=== PATIENT | female | born 1985 | race Caucasian/White ===

== ENCOUNTER 2017-03-04 12:05 | Emergency (ER) | payer OTHER ==
[~2017-03-04] VITALS: Ht 175.3 cm; Wt 112.6 kg
[~2017-03-04 12:05] MED LIST: FLEXERIL10 MG PO; MOTRIN800 MG PO
[2017-03-04 12:07] VITALS: BP 122/84
== END 2017-03-04 13:47 | disposition home or self-care (01) ==
LOC: EME 12:05
DX: T19.2XXA Foreign body in vulva and vagina, initial encounter (principal); X58.XXXA Exposure to other specified factors, initial encounter; Z88.5 Allergy status to narcotic agent; Z88.0 Allergy status to penicillin
CPT/HCPCS: 99281; 99284